=== PATIENT | female | born 1985 | race African-American/Black ===

== ENCOUNTER 2022-07-12 15:17 | Outpatient (CLI) | payer OTHER, SELFPAY ==
--- NOTE | 2022-07-12 15:30 | CRLHL7_ITS ---
For Patients: As a result of the Cures Act, medical imaging exams and procedure reports are released immediately into your electronic medical record. You may view this report before your referring provider. If you have questions, please contact your health care provider. INDICATION: Cervicalgia. TECHNIQUE: Multiplanar multisequence noncontrast MR images acquired. COMPARISON: None. FINDINGS: Straightening of the cervical lordosis. Vertebral heights maintained. No acute fracture or spondylolisthesis. No concerning T1 hypointense marrow replacing lesions or marrow edema. The cervical cord is normal in signal intensity. C2-3: No spinal canal or neural foraminal narrowing. C3-4: No spinal canal or neural foraminal narrowing. C4-5: Shallow posterior disc bulge. No spinal canal or neural foraminal narrowing. C5-6: No spinal canal or neural foraminal narrowing. C6-7: No spinal canal or neural foraminal narrowing. C7-T1: Shallow posterior disc bulge. Minimal spinal canal narrowing. No neural foraminal narrowing. IMPRESSION: 1. Minimal multilevel cervical spondylosis without spinal canal or neural foraminal stenosis. 2. Straightening of the cervical lordosis may relate to patient positioning or muscle spasm. Dictated by Henrik Layne MD @ 07/13/2022 9:43:25 AM (Electronically Signed)
== END 2022-07-12 15:18 | disposition home or self-care (01) ==
PROVIDERS: PCP Physician Assistant Medical; Visit Provider Physician Assistant Medical
DX: M54.2 Cervicalgia (principal); M47.892 Other spondylosis, cervical region
CPT/HCPCS: 72141

== ENCOUNTER 2023-08-30 08:31 | Outpatient (CLI) | payer OTHER, SELFPAY | END 2023-08-30 08:32 | disposition home or self-care (01) | LOC: FRMREF 08:34 | PROVIDERS: PCP Physician Assistant Medical; Visit Provider Physician Assistant Medical | DX: R51.9 Headache, unspecified (principal); I10 Essential (primary) hypertension | CPT/HCPCS: 80053 ==

== ENCOUNTER 2023-09-09 15:58 | Outpatient (CLI) | payer OTHER, SELFPAY ==
--- NOTE | 2023-09-09 16:00 | CRLHL7_ITS ---
For Patients: As a result of the Century Cures Act, medical imaging exams and procedure reports are released immediately into your electronic medical record. You may view this report before your referring provider. If you have questions, please contact your health care provider. INDICATION: Headache, unspecified TECHNIQUE: CT of the head without contrast. Coronal and sagittal reformats. Bone and soft tissue algorithms. COMPARISON: MRI 12/06/2021 FINDINGS: No acute intracranial hemorrhage or extraaxial collection. No evidence of acute cortical infarction. No mass effect or midline shift. The ventricles and sulci are age appropriate. Orbital contents are normal. No calvarial fractures. No lytic or sclerotic osseous lesions within the calvarium or skull base. Scalp and other imaged soft tissue structures are normal. Mastoid air cells are clear. IMPRESSION: No acute intracranial abnormality. Please note that all CT scans at this facility use dose modulation, iterative reconstruction, and/or weight-based dosing when appropriate to reduce radiation dose to as low as reasonably achievable. Dictated by Slade Turpin MD @ 09/10/2023 10:16:37 AM (Electronically Signed)
== END 2023-09-09 15:59 | disposition home or self-care (01) ==
LOC: CT 15:59
PROVIDERS: PCP Physician Assistant Medical; Visit Provider Physician Assistant Medical
DX: R51.9 Headache, unspecified (principal)
CPT/HCPCS: 70450

== ENCOUNTER 2023-10-04 20:21 | Emergency (ER) | payer OTHER, SELFPAY ==
[2023-10-04 20:27] VITALS: BP 136/86; PULSE 96; RESP 16; TEMP 36.7; O2SAT 100; BMI 31.5
--- NOTE | 2023-10-04 20:47 | ED_ITS ---
HPI - General Adult General Chief complaint: Hypertension Stated complaint: high blood pressure Time Seen by Provider: 10/04/23 20:37 History of Present Illness HPI narrative: Patient is a 38-year-old woman who comes in today with a refractory headaches. She has had 4 year history of headaches that occur nearly every day. They are hemicranium in nature. She has no photophobia no neurologic symptoms. There primarily on the left side. She has had full workup as an outpatient including a CT and MRI of the head. Patient had a particularly severe headache tonight and blood pressure at home was 200/100. She took Tylenol can emergency room were blood pressure is normal her headache is gone. She states she is taking 4000 mg of Tylenol daily. She has had no other significant symptoms otherwise feels well but is quite debilitated by her headaches and is very emotional. No neurologic symptoms. Patient states he is chronically anemic from heavy menses. Her last hemoglobin was 7 approximately a month ago. Related Data Home Medications Medication Instructions Recorded Confirmed acetaminophen 500 mg capsule 500 mg PO Q6H PRN 08/30/23 10/04/23 Previous Rx's Medication Instructions Recorded prednisone 20 mg tablet 20 mg PO BID #10 tabs 10/04/23 sumatriptan succinate 50 mg tablet 50 mg PO Q2-4H PRN migraine 10/04/23 (Imitrex) headache #10 tabs Allergies Allergy/AdvReac Type Severity Reaction Status Date / Time No Known Allergies Allergy Verified 10/04/23 20:34 Review of Systems Status of ROS: Reports: 10 or more systems reviewed and unremarkable except as noted in History and below PFSH PFS Medical History Blurred vision ?H53.8 - Other visual disturbances (ICD-10) Exudative pharyngitis ?J02.9 - Acute pharyngitis, unspecified (ICD-10) Headache ?R51.9 - Headache, unspecified (ICD-10) History of blood transfusion ?Z92.89 - Personal history of other medical treatment (ICD-10) Surgical History History of section ?Z98.891 - History of uterine scar from previous surgery (ICD-10) Family History Father High blood pressure Social History Smoking Status: Never smoker Do you use any of these nicotine containing products: None Second hand tobacco smoke exposure: No How often do you have a drink containing alcohol: never AUDIT-C Alcohol total score: 0 Non-prescribed substance use: denies use Exam Narrative: Exam Narrative: EXAM GENERAL: Patient appears comfortable and well. EYES: No scleral icterus. ENT: Tympanic membranes and oropharynx normal. THYROID: no thyroid nodules or thyromegaly. LYMPH: No supraclavicular or cervical lymphadenopathy. SKIN: Visible skin seen during exam normal or with benign process only. EXT: No dependent lower extremity pedal edema. HEART: Regular rate and rhythm with no murmurs, rubs, or gallops. LUNGS: Clear to auscultation bilaterally with no crackles or wheezes. ABD: Soft, non tender, non distended. PSYCH: Good eye contact, speech is not pressured. Neurologic cranial nerves 2-12 grossly intact no focal defects. Const: Vital Signs, click to edit/add: Vital Signs - 24 hr 10/04/23 20:27 Temperature 98.1 F Pulse Rate [Pulse Oximeter] 96 Respiratory Rate 16 Blood Pressure [Ri ght Upper Arm] 136/86 Pulse Oximetry 100 Oxygen Delivery Me thod Room Air Course Course ED Course: I do not believe repeat imaging is indicated. I did send off CBC due to history of anemia for which he is seeing OBGYN October 30. Vital Signs Vital signs: Initial Vital Signs Temperature 98.1 F 10/04/23 20:27 Temperature Source Temporal Artery Scan 10/04/23 20:27 Pulse Rate 96 10/04/23 20:27 Respiratory Rate 16 10/04/23 20:27 Blood Pressure 136/86 10/04/23 20:27 Blood Pressure Mean 102 10/04/23 20:27 Blood Pressure Position Sitting 10/04/23 20:27 Pulse Oximetry 100 10/04/23 20:27 Oxygen Delivery Method Room Air 10/04/23 20:27 Vital Signs Temperature 98.1 F 10/04/23 20:27 Pulse Rate 96 10/04/23 20:27 Respiratory Rate 16 10/04/23 20:27 Blood Pressure 136/86 10/04/23 20:27 Pulse Oximetry 100 10/04/23 20:27 Oxygen Delivery Method Room Air 10/04/23 20:27 Temperature 98.1 F 10/04/23 20:27 Pulse Rate 96 10/04/23 20:27 Respiratory Rate 16 10/04/23 20:27 Blood Pressure 136/86 10/04/23 20:27 Pulse Oximetry 100 10/04/23 20:27 Oxygen Delivery Method Room Air 10/04/23 20:27 Medical Decision Making MDM Narrative Medical decision making narrative: Patient is a 38 year old woman who I believe is been lost to follow-up. She has refractory headaches and came in today with elevated blood pressure which resolved prior to coming in. I do think she is taking bit too much Tylenol. I did start her on Imitrex and short course of prednisone. I did give her my card I will make sure she follows up in will give her the care that she needs. I do not believe further imaging or testing is needed at this time. Of note she does have a hemoglobin of 7.5. This is chronic she does have outpatient follow-up with OBGYN for heavy menses early next month. Differential Diagnosis Differential Diagnosis: Migraine headaches cluster headaches hypertension Lab Data Labs: Lab Results 10/04/23 Range/Units 20:58 WBC 4.03 L (4.50-11.00) K/uL RBC 4.46 (4.00-5.20) m/uL Hgb 7.5 L* (12.0-16.0) gm/dL Hct 26.9 L (33.0-51.0) % MCV 60 L (80-100) fL MCH 17 L (26-34) pg MCHC 28 L (32-36) gm/dL RDW Coeff of Jessica 20.0 H (11.5-15.5) % Plt Count 405 (140-440) K/uL Neut % (Auto) 54.1 (42.0-72.0) % Lymph % (Auto) 37.0 (20-44) % Walton % (Auto) 7.4 (0.0-11.0) % Eos % (Auto) 1.0 (0.0-7.0) % Baso % (Auto) 0.5 (0.0-3.0) % Neut # (Auto) 2.20 (1.7-7.0) K/uL Lymph # (Auto) 1.50 (0.90-2.90) K/uL Walton # (Auto) 0.30 (0.00-0.90) K/UL Eos # (Auto) 0.00 (0.00-0.50) K/uL Baso # (Auto) 0.00 (0.00-0.30) K/uL Abs Immat Gran (auto) 0.00 (0.00-0.30) K/uL Imm/Tot Granulo (auto) 0.0 % Discharge Plan Discharge Clinical Impression: Headache, migraine Patient Disposition: Home, Self-Care Condition: Stable Instructions: Migraine Headache (ED) Additional Instructions: Imitrex as directed Prednisone as directed Follow-up with Dr. Cruz Follow-up with OBGYN Activity Level: No Restrictions Discharge Diet: Regular Prescriptions: New sumatriptan succinate [Imitrex] 50 mg tablet 50 mg PO Q2-4H PRN (Reason: migraine headache) Qty: 10 2RF Rx Instructions: do not exceed 4 doses per 24 hrs prednisone 20 mg tablet 20 mg PO BID Qty: 10 0RF No Action acetaminophen 500 mg capsule 500 mg PO Q6H PRN Follow Up/Referrals: Cristian Gutierrez, [facility] [Primary Care Provider] - Stand Alone Forms: [employer] Info Instructions
[2023-10-04 21:07] LABS: Basophils Percent Auto 0.5 % (0.0-3.0); Hematocrit 26.9 % (33.0-51.0); Mean Corpuscular HGB Conc 28 gm/dL (32-36); Mean Corpuscular Hemoglobin 17 pg (26-34); Mean Corpuscular Volume 60 fL (80-100); Monocytes Percent Auto 7.4 % (0.0-11.0); Neutrophils Percent Auto 54.1 % (42.0-72.0); Platelet Count* 405 K/uL (140-440); Red Blood Count 4.46 m/uL (4.00-5.20); White Blood Count* 4.03 K/uL (4.50-11.00)
[2023-10-04 21:10] LABS: Hemoglobin* 7.5 gm/dL (12.0-16.0)
[2023-10-04 21:11] LABS: Slide Review Reflex Yes
[2023-10-04 22:21] LABS: Slide Review Acceptable Review (Acceptable)
--- NOTE | 2023-10-04 22:32 | ED.NURSE ---
Per lab, pt's hemoglobin cells appear abnormal under microscope. updated. Per d/c instructions, pt to schedule follow up in clinic for further testing.
== END 2023-10-04 21:30 | disposition home or self-care (01) ==
PROVIDERS: Emergency Provider Internal Medicine; PCP Physician Assistant Medical
DX: R51.9 Headache, unspecified (principal)
CPT/HCPCS: 36415; 85025; 95992; 99283

== ENCOUNTER 2023-10-22 15:33 | Outpatient (CLI) | payer OTHER, SELFPAY | END 2023-10-22 15:34 | disposition home or self-care (01) | PROVIDERS: PCP Physician Assistant Medical; Visit Provider Internal Medicine | DX: I10 Essential (primary) hypertension (principal); D50.9 Iron deficiency anemia, unspecified | CPT/HCPCS: 83540; 83550; 85045 ==

== ENCOUNTER 2023-11-15 14:00 | Outpatient (RCR) | payer OTHER, SELFPAY ==
--- NOTE | 2023-11-01 08:19 | URNOTE ---
Per [facility], prior authorization is not required for [place]ver[place] ([id number]). ref #[id number]
[2023-11-04 13:15] VITALS: BP 135/89; PULSE 61; RESP 14; TEMP 36.2; O2SAT 100
[2023-11-04] MEDS: IRON SUCROSE COMPLEX 200 MG in 0.9 % SODIUM CHLORIDE 100 ml 440 MG IVPB (14:00)
[2023-11-04 15:00] VITALS: BP 138/83; PULSE 70; RESP 15; TEMP 36.6; O2SAT 100
[2023-11-04] MEDS: 0.9 % SODIUM CHLORIDE 250 ml IV (15:10)
[2023-11-04] MEDS: SODIUM CHLORIDE 0.9 % (FLUSH) 10 ML SYRINGE IVF (15:10)
[2023-11-08 13:58] VITALS: BP 139/85; PULSE 79; RESP 16; TEMP 36.1; O2SAT 100
[2023-11-08] MEDS: 0.9 % SODIUM CHLORIDE 250 ml IV (14:08)
[2023-11-08] MEDS: IRON SUCROSE COMPLEX 200 MG in 0.9 % SODIUM CHLORIDE 100 ml 440 MG IVPB (14:08)
[2023-11-08] MEDS: SODIUM CHLORIDE 0.9 % (FLUSH) 10 ML SYRINGE IVF (14:08)
[2023-11-11 14:07] VITALS: BP 125/74; PULSE 68; RESP 16; TEMP 36.7; O2SAT 100
[2023-11-11] MEDS: 0.9 % SODIUM CHLORIDE 250 ml IV (14:22)
[2023-11-11] MEDS: SODIUM CHLORIDE 0.9 % (FLUSH) 10 ML SYRINGE IVF (14:22)
[2023-11-11] MEDS: IRON SUCROSE COMPLEX 200 MG in 0.9 % SODIUM CHLORIDE 100 ml 440 MG IVPB (14:22)
[2023-11-11 15:06] VITALS: BP 132/84; PULSE 71; RESP 16; TEMP 37; O2SAT 100
[2023-11-13 14:00] VITALS: BP 122/77; PULSE 79; RESP 16; TEMP 36.1; O2SAT 100
[2023-11-13] MEDS: 0.9 % SODIUM CHLORIDE 250 ml IV (14:23)
[2023-11-13] MEDS: SODIUM CHLORIDE 0.9 % (FLUSH) 10 ML SYRINGE IVF (14:23)
[2023-11-13] MEDS: IRON SUCROSE COMPLEX 200 MG in 0.9 % SODIUM CHLORIDE 100 ml 440 MG IVPB (14:24)
[2023-11-15 14:10] VITALS: BP 131/79; PULSE 85; RESP 16; TEMP 36.1; O2SAT 99
[2023-11-15] MEDS: SODIUM CHLORIDE 0.9 % (FLUSH) 10 ML SYRINGE IVF (14:25)
[2023-11-15] MEDS: 0.9 % SODIUM CHLORIDE 250 ml IV (14:25)
[2023-11-15] MEDS: IRON SUCROSE COMPLEX 200 MG in 0.9 % SODIUM CHLORIDE 100 ml 440 MG IVPB (14:45)
[2023-11-15 15:05] VITALS: BP 121/79; PULSE 71; RESP 18; TEMP 36.5; O2SAT 100
== END 2024-05-02 23:59 | disposition home or self-care (01) ==
LOC: CCIC 14:00
PROVIDERS: PCP Internal Medicine; Visit Provider Internal Medicine
DX: D50.9 Iron deficiency anemia, unspecified (principal)
CPT/HCPCS: 96365; 96374; 96376; J1756; J7050

== ENCOUNTER 2024-01-07 14:59 | Outpatient (CLI) | payer OTHER, SELFPAY | END 2024-01-07 15:00 | disposition home or self-care (01) | PROVIDERS: PCP Internal Medicine; Visit Provider Internal Medicine | DX: D64.9 Anemia, unspecified (principal) | CPT/HCPCS: 83540; 83550 ==

== ENCOUNTER 2024-08-16 02:53 | Emergency (ER) | payer OTHER, SELFPAY ==
[2024-08-16 02:57] VITALS: BP 149/92; PULSE 71; RESP 18; TEMP 36.2; O2SAT 100; BMI 29.9
--- NOTE | 2024-08-16 04:29 | ED.GENADULT ---
HPI - General Adult General Chief complaint: Headache/Migraine Stated complaint: High Blood Pressure and severe headaches Time Seen by Provider: 08/16/24 03:14 Source: patient and family Mode of arrival: ambulatory Limitations: no limitations History of Present Illness HPI narrative: 39-year-old female with chronic headache disorder who has had multiple prior CT scans and an MRI within the last 2 years presents to the emergency department for evaluation of headache tonight that woke her from sleep. No neurological changes associated with it. She reports that the pain was 10/10 which is unusual for her. She took 2 Tylenol and the headache went from a 10 to a 2. She is frustrated that she keeps getting these headaches and states that it is in similar character to all of her other headaches. She also notes that her blood pressure fluctuates frequently and she is frustrated by this and no one is giving her any answers. She reports that she took her blood pressure at home and it was 160 tonight with the headache but it can be as high as 210. Her blood pressure is 140 in triage. She tells me that she wants a long-term solution and a new opinion on how to manage this chronic problem. [place] 3[place]. She already has an upcoming appointment with neurology to discuss this. It is in just a few weeks. She follows regularly with her primary care provider. She takes Lyrica for chronic nerve pain. She denies any recent missed doses. No new injury or trauma. No vision changes. She says that she has chronic feeling of coldness on her left side which is not new and is not different today. No difficulty moving her extremities or ambulating. No vomiting, fevers or recent illness. No history of intracranial surgery. Primary care notes reviewed. MRI from 10/[address] scan from less than a year ago reviewed. Home meds accurate, Lyrica as prescribed, uses Tylenol extra-strength a couple times daily typically. Nonsmoker. ROS is notable for the chronic symptoms as above. Unchanged today just increased frustration with that. She also does report neck pain in the upper back radiating into the bilateral neck area. No injury or trauma. Related Data Home Medications ?Medication ?Instructions ?Recorded ?Confirmed acetaminophen 500 mg capsule 500 mg PO Q6H PRN 08/30/23 03/30/24 Previous Rx's ?Medication ?Instructions ?Recorded pregabalin 100 mg capsule (Lyrica) 100 mg PO Q8H #60 caps 03/30/24 Allergies Allergy/AdvReac Type Severity Reaction Status Date / Time No Known Allergies Allergy Verified 03/30/24 15:35 PFSH PFS Medical History Neuralgia ?M79.2 - Neuralgia and neuritis, unspecified (ICD-10) Anemia ?D64.9 - Anemia, unspecified (ICD-10) Blurred vision ?H53.8 - Other visual disturbances (ICD-10) Exudative pharyngitis ?J02.9 - Acute pharyngitis, unspecified (ICD-10) Headache ?R51.9 - Headache, unspecified (ICD-10) History of blood transfusion ?Z92.89 - Personal history of other medical treatment (ICD-10) Surgical History History of section ?Z98.891 - History of uterine scar from previous surgery (ICD-10) Family History Father High blood pressure Social History Smoking Status: Never smoker Do you use any of these nicotine containing products: None Second hand tobacco smoke exposure: No How often do you have a drink containing alcohol: never AUDIT-C Alcohol total score: 0 Non-prescribed substance use: denies use Little interest or pleasure in doing things: not at all Feeling down, depressed, or hopeless: not at all Exam Const: Vital Signs, click to edit/add: Vital Signs - 24 hr 08/16/24 02:57 Temperature 97.1 F L Pulse Rate [Pulse Oximeter] 71 Respiratory Rate 18 Blood Pressure [Ri ght Upper Arm] 149/92 H Pulse Oximetry 100 Oxygen Delivery Me thod Room Air Documenting provider has reviewed patient's vital signs: yes Common normals: oriented x3 Other: Perseverant about the fact that her high blood pressure is causing her headache and problems. Appears well nourished, well hydrated. Cooperative. HENMT: Common normals: normocephalic, TM's normal bilaterally, moist oral mucous membranes and oropharynx normal Head and scalp: normocephalic Tympanic membrane: TM's normal bilaterally Eye: Common normals: PERRL, EOMs intact bilaterally, conjunctivae normal, no papilledema and fundi normal bilaterally Conjunctiva: conjunctiva(e) normal Pupil: PERRL Direct Ophthalmoscopy: no papilledema and fundi normal bilaterally Neck & C-Spine: Common normals: full ROM and no lymphadenopathy Other: No meningeal signs. Resp: Common normals: normal respiratory effort, no use of accessory muscles and clear to auscultation bilaterally Effort & inspection: able to speak in complete sentences Auscultation: clear to auscultation bilaterally Cardio: Common normals: regular rate, regular rhythm, S1 normal heart sound, S2 normal heart sound and no murmurs Rate: regular rate Rhythm: regular rhythm Heart sounds: S1 normal and S2 normal Extremity: Common normals: normal to inspection, full ROM and normal capillary refill Neuro: Common normals: oriented x3, CN's II-XII intact bilaterally, moves all extremities, no focal motor deficits and gait normal Coordination/balance: tandem gait normal, does not sway with eyes open, Romberg test negative and Normal rapid alternating movements of the distal upper extremity present (Neuro) Motor exam: strength 5/5 throughout, no pronator drift, no tremor noted and no movement abnormalities noted Coordination: tandem gait normal, does not sway with eyes open and rapid alternating movement UE normal Psych: Attitude: engaged Activity/motor behavior: appropriate eye contact Insight: fair Judgement: fair Skin: Common normals: no rashes or lesions noted General skin exam: no rashes or lesions noted Course Course ED Course: 39-year-old female with ongoing headache syndrome and chronic nerve pain presenting with headache and reported elevated blood pressure at home. Symptoms improved here in the ED. Exhibiting some tension type headache symptoms as well. Extensive counseling to patient and family of the limitations that I can offer here in the emergency department. Has been asked about iron testing, other things that we cannot do in an emergency department. She has had very appropriate outpatient workup. I am thankful she already has an upcoming neurology appointment. I think there may be some multifactorial somatic type issues at work your 2. I have counseled the family on potential risk of recurrent radiation if we do another CT scan. I am especially concerned with this in the setting of her normal neurological exam including funduscopic exam and extensive balance testing. I do not recommend we proceed with yet another CT scan today. Rationale was extensively discussed. I did offer Toradol and Flexeril from in stay meds for them to have at home for flare-ups of this. And I have discussed with them that additional testing for ambulatory blood pressure may be helpful and consideration of referral only if this is abnormal. My rationale for why do not recommend that I would start them in the emergency department on a blood pressure medication is discussed and it is because her blood pressure is normotensive at the moment. Alarm symptoms reviewed and written instructions provided. All questions answered. 27 minutes were spent [id number]. Additional 10 minutes in coordination of prescriptions and documentation. Vital Signs Vital signs: Initial Vital Signs Temperature 97.1 F L 08/16/24 02:57 Temperature Source Temporal Artery Scan 08/16/24 02:57 Pulse Rate 71 08/16/24 02:57 Pulse Rhythm Regular 08/16/24 02:57 Respiratory Rate 18 08/16/24 02:57 Blood Pressure 149/92 H 08/16/24 02:57 Blood Pressure Mean 111 H 08/16/24 02:57 Blood Pressure Position Supine 08/16/24 02:57 Pulse Oximetry 100 08/16/24 02:57 Oxygen Delivery Method Room Air 08/16/24 02:57 Vital Signs Temperature 97.1 F L 08/16/24 02:57 Pulse Rate 71 08/16/24 02:57 Respiratory Rate 18 08/16/24 02:57 Blood Pressure 149/92 H 08/16/24 02:57 Pulse Oximetry 100 08/16/24 02:57 Oxygen Delivery Method Room Air 08/16/24 02:57 Temperature 97.1 F L 08/16/24 02:57 Pulse Rate 71 08/16/24 02:57 Respiratory Rate 18 08/16/24 02:57 Blood Pressure 149/92 H 08/16/24 02:57 Pulse Oximetry 100 08/16/24 02:57 Oxygen Delivery Method Room Air 08/16/24 02:57 Discharge Plan Discharge Clinical Impression: Headache, tension type, episodic, Fluctuating blood pressure Patient Disposition: Home w/ Parent or Adult Condition: Stable Instructions: Tension Headache (ED) Additional Instructions: As we discussed, your exam is reassuring today that your not having an aneurysm, stroke, intracranial hemorrhage or other neurological emergency. I agree with you that the fluctuating blood pressures, chronic headaches and now new development today of this tension-type headache are frustrating. I am thankful that you already have a pending appointment with the neurologist. I would like for you to stay on your Lyrica as prescribed. Continue using Tylenol 1000 mg every 6 hours as needed for headache. You should consider discussing ambulatory blood pressure monitoring with your primary care provider and referral to a cement mason maintenance which is a kidney and blood pressure specialist if the report is abnormal. It is important that ambulatory blood pressure monitoring would be performed 1st. As we discussed, I do not recommend a CT scan be performed again today. You have had several of these in the past and also an MRI. Additional radiation can be risky to your brain. I wish that it would give us better answers of how to care for you long-term but I am confident that it would not tonight. For the headache and tension pain, I would recommend Toradol 1 tablet up to every 6 hours and I have also given you a prescription for a muscle relaxant, Flexeril which you may use up to twice daily. Many find this very strong, you may want to consider starting with a half a pill. Please keep your neurology appointment as scheduled and follow-up with your primary care doctor if you continue to have persistent symptoms. Activity Level: No Restrictions Discharge Diet: Regular Prescriptions: No Action acetaminophen 500 mg capsule 500 mg PO Q6H PRN pregabalin [Lyrica] 100 mg capsule 100 mg PO Q8H Qty: 60 0RF Follow Up/Referrals: Silver Cruz MD [Primary Care Provider] - Stand Alone Forms: [employer] Info Instructions
== END 2024-08-16 04:46 | disposition home or self-care (01) ==
PROVIDERS: Emergency Provider Family Medicine; PCP Internal Medicine
DX: G44.209 Tension-type headache, unspecified, not intractable (principal); I10 Essential (primary) hypertension
CPT/HCPCS: 99284